=== PATIENT | male | born 1965 | race Caucasian/White ===

== ENCOUNTER 2018-07-07 22:30 | Emergency (ER) | payer MEDICAID ==
[~2018-07-07] VITALS: Ht 165.1 cm; Wt 88.5 kg
[2018-07-07 22:51] VITALS: BP 137/93
== END 2018-07-08 00:30 | disposition left against medical advice (07) ==
LOC: EDBD 22:30 → ER 22:36
DX: R51 Headache (principal); M54.2 Cervicalgia; Z53.21 Procedure and treatment not carried out due to patient leaving prior to being seen by health care provider
CPT/HCPCS: 70450; 72125